=== PATIENT | female | born 1950 | race Caucasian/White ===

== ENCOUNTER 2018-05-31 00:21 | Emergency (ER) | payer MEDICARE ==
[~2018-05-31] VITALS: Ht 165.1 cm; Wt 102.0 kg
[2018-05-31] MEDS ORDERED: KETOROLAC 30 MG/1 ML ONE (00:46)
[2018-05-31] MEDS ORDERED: ONDANSETRON ODT 4 MG ONE (00:46)
[2018-05-31] MEDS ORDERED: HYDROmorphone 2 MG/ML, 1ML ONE (00:46)
[2018-05-31 00:59] LABS: BASOPHILS # (AUTO) 0.09 x10^3/uL (0-0.1); BASOPHILS % (AUTO) 1 % (0-1); EOSINOPHILS # (AUTO) 0.12 x10^3/uL (0-0.4); EOSINOPHILS % (AUTO) 2 % (1-7); LYMPHOCYTES # (AUTO) 2.75 x10^3/uL (1-3.4); LYMPHOCYTES % (AUTO) 35 % (22-44); MD NO; MEAN CORPUSCULAR HEMOGLOBIN 29.4 pg (27.0-34.8); MEAN CORPUSCULAR HGB CONC 33.7 g/dL (32.4-35.8); MEAN CORPUSCULAR VOLUME 87.3 fL (80-100); MEAN PLATELET VOLUME 7.5 fL (7.4-10.4); MONOCYTES # (AUTO) 0.59 x10^3/uL (0.2-0.8); MONOCYTES % (AUTO) 8 % (2-9); NEUTROPHILS # (AUTO) 4.24 x10^3/uL (1.8-6.8); NEUTROPHILS % (AUTO) 55 % (42-75); PLATELET COUNT 368 x10^3/uL (130-400); RED BLOOD COUNT 4.86 x10^6/uL (3.82-5.3); RED CELL DISTRIBUTION WIDTH 15.5 % (9.6-15.2)
[2018-05-31] MEDS ORDERED: SODIUM CHLORIDE FLUSH 10ML SYR IVF ONE (01:00)
[2018-05-31] MEDS ORDERED: HYDROmorphone 2 MG/ML, 1ML IVPush PRN (01:00)
[2018-05-31] MEDS ORDERED: SODIUM CHLORIDE 0.9% 1,000ML IV ONE (01:00)
[2018-05-31] MEDS ORDERED: ONDANSETRON ODT 4 MG PO ONE (01:00)
[2018-05-31] MEDS ORDERED: KETOROLAC 30 MG/1 ML IVPush ONE (01:00)
[2018-05-31 01:01] LABS: ALANINE AMINOTRANSFERASE 33 U/L (12-78); ALBUMIN 3.8 g/dL (3.4-5.0); ANION GAP 9 mmol/L (5-15); CALCIUM 8.7 mg/dL (8.5-10.1); CHLORIDE 112 mmol/L (98-107)
[2018-05-31 01:04] LABS: ALKALINE PHOSPHATASE 74 U/L (45-117); BILIRUBIN,TOTAL 0.2 mg/dL (0.2-1.0)
[2018-05-31 02:41] LABS: MICROSCOPIC INDICATED
[2018-05-31 02:43] VITALS: BP 142/67
[2018-05-31 02:55] LABS: CULTURE INDICATED? NO
== END 2018-05-31 03:13 | disposition home or self-care (01) ==
LOC: ED 01:08
DX: N20.1 Calculus of ureter (principal); M54.9 Dorsalgia, unspecified; G89.29 Other chronic pain
CPT/HCPCS: 36415; 74176; 80053; 81001; 83690; 85025; 96374; 96375; 99285; J1170; J1885; J7030; Q0162

== ENCOUNTER 2018-07-15 14:28 | Emergency (ER) | payer MEDICARE ==
[~2018-07-15] VITALS: Ht 165.1 cm; Wt 102.7 kg
[2018-07-15 14:30] VITALS: BP 112/72
[2018-07-15] MEDS ORDERED: DIPH,PERTUSS(ACELL),TET VAC/PF 0.5 ML IM-VACC ONE ×2 (14:49→15:00)
[2018-07-15] MEDS ORDERED: LIDOCAINE-MPF 1%, 5ML ONE (14:49)
[2018-07-15] MEDS ORDERED: LIDOCAINE 2%, 20ML SQ ONE (15:00)
== END 2018-07-15 16:17 | disposition home or self-care (01) ==
LOC: ED 16:10
DX: S91.114A Laceration without foreign body of right lesser toe(s) without damage to nail, initial encounter (principal); S16.1XXA Strain of muscle, fascia and tendon at neck level, initial encounter; G89.29 Other chronic pain; M19.90 Unspecified osteoarthritis, unspecified site; W01.0XXA Fall on same level from slipping, tripping and stumbling without subsequent striking against object, initial encounter; Y93.89 Activity, other specified; Y92.009 Unspecified place in unspecified non-institutional (private) residence as the place of occurrence of the external cause; Y99.8 Other external cause status
CPT/HCPCS: 12001; 72125; 90471; 90715